=== PATIENT | male | born 1960 | race Caucasian/White ===

== ENCOUNTER 2020-09-25 10:38 | Observation (INO) | payer OTHER ==
[~2020-09-25] VITALS: Ht 175.2 cm; Wt 108.9 kg
[2020-09-25 10:52] VITALS: BP 138/71
[2020-09-25 11:11] LABS: BASO % 0.3 % (0.0-1.0); EOS # 0.3 10*3/uL (0.0-0.4); EOS % 2.5 % (1.0-4.0); LYMPH % 9.9 % (27.0-41.0); MEAN CELL VOLUME 100.8 fl (80.0-94.0); MEAN CORPUSCULAR HGB 31.1 pg (27.0-31.0); MEAN CORPUSCULAR HGB CONC 30.8 g/dl (33.0-37.0); MEAN PLATELET VOLUME 9.6 fl (9.6-12.3); MONO # 0.8 10*3/uL (0.1-1.0); MONO % 7.5 % (3.0-9.0); NEUT # 8.1 10*3/uL (2.3-7.9); NEUT % 78.5 % (47.0-73.0); PLATELET COUNT AUTOMATED 289 10*3/uL (130-400); RED BLOOD COUNT 2.38 10*6/uL (4.50-5.90); RED CELL DISTRI WIDTH 13.5 % (0-14.5); WHITE BLOOD COUNT 10.3 10*3/uL (4.8-10.8)
[2020-09-25 11:20] LABS: ACT PARTIAL THROMBO TIME 27.2 SECONDS (20.0-32.1)
[2020-09-25 11:28] LABS: ALKALINE PHOSPHATASE 70 U/L (45-117); BUN 71 mg/dl (7-24); CHLORIDE 104 mmol/L (98-107); POTASSIUM 3.8 mmol/L (3.5-5.1); SGOT/AST 10 IU/L (3-35); SGPT/ALT 14 U/L (12-78); SODIUM 141 mmol/L (136-145)
[2020-09-25 11:30] LABS: TROPONIN I < 0.015 ng/ml (<0.045)
[2020-09-25 12:53] VITALS: BP 121/67
--- NOTE | 2020-09-25 13:38 | NUR ---
A 60, admitted to 4E, under the services of MARLO Jackson DO with a diagnosis of CHEST PAIN R/O NH. Chief complaint is INTERMITTENT CHEST PAIN. Patient arrived via ambulatory from ER. Monitor applied. Initial assessment completed. Vital signs taken and recorded. MARLO JACKSON DO notified of admission to the unit. Orders received. See assessment for past medical history, medications and allergies. Patient and/or family oriented to unit. [facility] visitation policy reviewed. Clothing/patient valuable form completed. LARRY RODRIGUEZ
[2020-09-25] MEDS ORDERED: TOPROL XL25 MG PO (13:54)
[2020-09-25] MEDS ORDERED: ASPIRIN CHEWABL81 MG PO (13:56)
[2020-09-25] MEDS ORDERED: TORSEMIDE10 MG PO (13:56)
[2020-09-25] MEDS ORDERED: RENA-VITE1 TAB PO (13:57)
[2020-09-25] MEDS ORDERED: SENSIPAR60 MG PO (13:57)
[2020-09-25] MEDS ORDERED: ROCALTROL0.5 MC1 PO (13:58)
[2020-09-25] MEDS ORDERED: SODIUM BICARBO650 MG PO (13:58)
[2020-09-25] MEDS ORDERED: AURYXIA210 MG PO (13:59)
[2020-09-25] MEDS ORDERED: CALCIUM ACETAT667 M2 PO (13:59)
--- NOTE | 2020-09-25 14:00 | NUR ---
MED REC UPDATED VIA HOME LIST.
--- NOTE | 2020-09-25 14:31 | NUR ---
NOTIFIED MED REC WAS UPDATED AND PT DOES PD AT HOME.
--- NOTE | 2020-09-25 14:44 | NUR ---
CONSULT CALLED TO . AWAITING CALL BACK.
[2020-09-25 16:06] VITALS: BP 132/72
[2020-09-25] MEDS ORDERED: IMDUR SA30 MG PO (17:02)
--- NOTE | 2020-09-25 18:21 | NUR ---
Discharge instructions reviewed with patient/family. Patient receptive and verbalizes understanding. Follow-up care arranged. Written instructions given to patient/family. LARRY RODRIGUEZ
== END 2020-09-25 18:21 | disposition home or self-care (01) ==
LOC: ED 10:38 → EDHOLD 12:19 → 4E 12:19
PROVIDERS: Emergency Medicine; ADMIT Internal Medicine; ATTEND Internal Medicine
DX: R07.89 Other chest pain (principal); I25.10 Atherosclerotic heart disease of native coronary artery without angina pectoris; I13.2 Hypertensive heart and chronic kidney disease with heart failure and with stage 5 chronic kidney disease, or end stage renal disease; N18.6 End stage renal disease; I50.9 Heart failure, unspecified; R79.82 Elevated C-reactive protein (CRP); D53.9 Nutritional anemia, unspecified